=== PATIENT | female | born 1945 | race Caucasian/White ===

== ENCOUNTER → 2019-05-15 | Outpatient (CLI) | payer OTHER ==
[~2019-05-15] MED LIST: ESCITALOPRA5 MG/5 ML PO; HYDROCODON-ACE1 EAC7 PO; INDAPAMIDE1.25 MG PO; LEVO-T25 MCG PO; PROTONIX40 M2 PO; ZESTRIL2.5 MG PO
== END ==
LOC: M.ULTRA 07:52
DX: S06.5X0A Traumatic subdural hemorrhage without loss of consciousness, initial encounter (principal); K76.89 Other specified diseases of liver; R10.9 Unspecified abdominal pain; S02.19XA Other fracture of base of skull, initial encounter for closed fracture; R90.82 White matter disease, unspecified; N28.1 Cyst of kidney, acquired; X58.XXXA Exposure to other specified factors, initial encounter; Y93.89 Activity, other specified; Y92.89 Other specified places as the place of occurrence of the external cause; Y99.8 Other external cause status